=== PATIENT | female | born 2000 | race Two or more races ===

== ENCOUNTER 2023-08-29 12:34 | Emergency (ER) | payer OTHER ==
[~2023-08-29] VITALS: Ht 154.9 cm; Wt 83.9 kg
[~2023-08-29 12:34] MED LIST: TRISPEC PSE LI118 ML PO; TUSSIN DM SYRU118 ML PO; ZITHROMAX500 MG PO; ZYRTEC10 MG PO
[2023-08-29 15:36] LABS: HEMATOCRIT 40.4 % (36.0-45.00); MEAN CELL VOLUME 86.2 fL (80.00-100.00); MEAN CORPUSCULAR HEMOGLOBIN 29.9 pg (27.00-32.0); MEAN CORPUSCULAR HGB CONC 34.7 g/dl (32.0-36.0); PLATELET COUNT 222 K/uL (150-450); RED BLOOD COUNT 4.69 M/uL (4.00-6.00); RED CELL DISTRIBUTION WIDTH 12.9 % (11.5-14.5)
[2023-08-29] MEDS ORDERED: CEFTRIAXONE SODIUM 1,000 MG VIAL IM STA (15:56)
== END 2023-08-29 16:19 | disposition home or self-care (01) ==
LOC: ER 12:34
PROVIDERS: Emergency Medicine
DX: J03.90 Acute tonsillitis, unspecified (principal); Z20.822 Contact with and (suspected) exposure to COVID-19